=== PATIENT | male | born 1975 | race American Indian/Alaskan Native ===

== ENCOUNTER 2019-01-08 12:50 | Outpatient (CLI) | payer OTHER ==
--- NOTE | 2019-01-08 13:55 | Cat Scan Report ---
FINAL REPORT EXAM: CT ABDOMEN WO CONTRAST HISTORY: liver mass TECHNIQUE: CT of the abdomen was performed without intravenous contrast. Reconstructions were included in the coronal and sagittal planes. PRIORS: None. FINDINGS: Lower thorax: The lung bases are clear. The visualized portions of the heart are normal. Liver: The liver is normal in attenuation. No intrahepatic biliary duct dilation. There is a nonspeci fic mixed probable solid and cystic lesion in the right hepatic lobe measuring approximately 10.1 x 8 .3 centimeters. Gallbladder/ biliary system: No cholelithiasis. The common bile duct appears nondilated. Spleen: No splenic lesions are seen. Pancreas: No pancreatic lesions are seen. No pancreatic duct dilation. Kidneys: No renal masses, cysts or hydronephrosis. No renal or ureteral calcifications. Adrenal glands: No adrenal masses. Vasculature: The abdominal aorta is nondilated. Lymph nodes: No enlarged lymph nodes are seen in the abdomen. Bowel, mesentery, peritoneum: No bowel obstruction. No free fluid or free air. The appendix was not c ompletely imaged. The visualized portions demonstrate no focal abnormality. No colonic diverticulosis . No bowel wall thickening. Abdominal wall: No abdominal wall hernia or other subcutaneous findings. Bones: No acute or chronic osseous finding. IMPRESSION: Large mixed cystic and solid right hepatic lesion. Recommend further evaluation with multiphasic dedi cated hepatic CT or MRI to further characterize this lesion.
== END 2019-01-08 12:51 | disposition home or self-care (01) ==
LOC: CT 12:50
PROVIDERS: ATTEND Internal Medicine
DX: K76.89 Other specified diseases of liver (principal)
CPT/HCPCS: 74150